=== PATIENT | female | born 1935 | race Caucasian/White ===

== ENCOUNTER 2016-08-05 22:41 | Emergency (ER) | payer OTHER ==
[~2016-08-05 22:41] MED LIST: ELAVIL25 MG PO; FEOSOL325 MG PO; LASIX40 MG PO; LAXATIVE5 MG PO; LOPRESSOR25 MG PO; NORCO 5-325 TA1 EACH PO; PRINIVIL20 MG PO; XARELTO10 MG PO
== END 2016-08-06 01:57 | disposition home or self-care (01) ==
LOC: FER 22:41
DX: S00.83XA Contusion of other part of head, initial encounter (principal); I10 Essential (primary) hypertension; E78.5 Hyperlipidemia, unspecified; Z23 Encounter for immunization; Z79.899 Other long term (current) drug therapy; W10.9XXA Fall (on) (from) unspecified stairs and steps, initial encounter; Y92.009 Unspecified place in unspecified non-institutional (private) residence as the place of occurrence of the external cause
CPT/HCPCS: 70450; 90471; 90715

== ENCOUNTER 2020-03-20 20:05 | Emergency (ER) | payer OTHER ==
[~2020-03-20 20:05] MED LIST changes: +AMLODIPINE BES2.5 MG PO; +ARICEPT 5MG TABL5 MG PO; +BACTRIM DS TAB1 EACH PO; +CELEBREX200 MG PO; +CELECOXIB200 MG PO; +CYMBALTA 30MG C30 MG PO; +DULOXETINE HCL60 MG PO; +ELAVIL10 MG PO; +FOLIC ACID1 MG PO; +FUROSEMIDE 40MG40 MG PO; +KETOPROFEN TOP; +LIDOCAINE TOP; +MACROBID100 MG PO; +MEDROL 4MG DOSEP4 MG PO; +METOPROLOL SUC100 MG PO; +NABUMETONE500 MG PO; +NEURONTIN100 M1 PO; +NEURONTIN100 MG PO; +NORVASC2.5 MG PO; +NORVASC5 MG PO; +PHENYTEK300 MG PO; +POTASSIUM CHLO10 ME1 PO; +SYNTHROID25 MCG PO; +TOPROL XL 50 MG50 MG PO; +VIBRAMYCIN100 MG PO; +VISTARIL25 MG PO; +XANAX0.5 M1 PO
[2020-03-21] MEDS ORDERED: NAPROSYN375 MG PO (00:23)
== END 2020-03-21 01:40 | disposition home or self-care (01) ==
LOC: FER 20:05
DX: S70.11XA Contusion of right thigh, initial encounter (principal); I10 Essential (primary) hypertension; Z88.5 Allergy status to narcotic agent; Z79.899 Other long term (current) drug therapy; W19.XXXA Unspecified fall, initial encounter; Y92.009 Unspecified place in unspecified non-institutional (private) residence as the place of occurrence of the external cause
CPT/HCPCS: 73502; 73560; 73700; J2270; J2405

== ENCOUNTER 2020-03-21 11:53 | Inpatient (IN) | payer OTHER ==
[~2020-03-21 11:53] MED LIST changes: +NAPROSYN375 MG PO
[2020-03-21 13:45] LABS: BASOPHIL 0.2 % (0-2); EOSINOPHIL 1.8 % (0-7); HCT 39.4 % (37.0-47.0); LYMPHOCYTE 10.8 % (15-48); MONOCYTE 6.5 % (0-12); MPV 9.1 fL (6.0-9.5); NEUTROPHIL 80.2 % (41-80); NRBC 0; PLT 125 K/uL (150-400); RBC 4.06 M/uL (4.20-5.40); RDW 12.4 % (11.5-14.0); WBC 8.2 K/uL (4.0-10.5)
[2020-03-21 14:04] LABS: ALBUMIN 3.2 g/dL (3.4-5.0); BILIRUBIN - TOTAL 0.6 mg/dL (0.2-1.0); BUN/CREAT RATIO (CALC) 25.8 RATIO; CREATININE 0.89 mg/dL (0.51-0.95); GLOBULIN (CALCULATION) 3.5 g/dL; POTASSIUM 4.1 mmol/L (3.5-5.1); TOTAL PROTEIN 6.7 g/dL (6.4-8.2)
[2020-03-21 21:22] LABS: BILIRUBIN NEGATIVE (NEGATIVE); BLOOD TRACE-INTACT Ery/uL (NEGATIVE); CLARITY CLOUDY (CLEAR); COLOR YELLOW (YELLOW); GLUCOSE (U) NORMAL (NORMAL); LEUKOCYTES 1+ Leu/uL (NEGATIVE); NITRITE NEGATIVE (NEGATIVE); PROTEIN NEGATIVE (NEGATIVE); UROBILINOGEN 0.2 mg/dL (0.2-1.0); pH 6.5 (5.0-9.0)
[2020-03-21 21:28] LABS: BACTERIA 4+; URINARY WBC TNTC
--- NOTE | 2020-03-22 17:06 | NUR ---
DR JUDD CONSULTED AND CALLED. MRI WITHOUT CONTRAST ORDERED FOR AM D/T RIGHT HIP PAIN D/T FALL AT HOME
[2020-03-24 07:37] LABS: BUN/CREAT RATIO (CALC) 20.2 RATIO; CREATININE 0.84 mg/dL (0.51-0.95)
[2020-03-24 07:38] LABS: BASOPHIL 0.4 % (0-2); EOSINOPHIL 4.3 % (0-7); HCT 36.8 % (37.0-47.0); LYMPHOCYTE 12.6 % (15-48); MCH 32.1 pg (25.0-31.0); MCHC 32.6 g/dL (32.0-36.0); MCV 98.4 fL (78.0-100.0); MONOCYTE 9.8 % (0-12); MPV 9.8 fL (6.0-9.5); NEUTROPHIL 72.1 % (41-80); NRBC 0; PLT 136 K/uL (150-400); RBC 3.74 M/uL (4.20-5.40); RDW 12.3 % (11.5-14.0); WBC 5.3 K/uL (4.0-10.5)
[2020-03-25 06:23] LABS: BASOPHIL 0.4 % (0-2); EOSINOPHIL 2.4 % (0-7); HCT 30.1 % (37.0-47.0); HGB 9.8 g/dl (12.5-16.0); LYMPHOCYTE 9.1 % (15-48); MCH 31.4 pg (25.0-31.0); MCHC 32.6 g/dL (32.0-36.0); MCV 96.5 fL (78.0-100.0); MONOCYTE 11.6 % (0-12); MPV 9.9 fL (6.0-9.5); NEUTROPHIL 75.9 % (41-80); NRBC 0; PLT 146 K/uL (150-400); RBC 3.12 M/uL (4.20-5.40); RDW 12.3 % (11.5-14.0)
[2020-03-25 06:43] LABS: BUN/CREAT RATIO (CALC) 24.1 RATIO; CREATININE 0.83 mg/dL (0.51-0.95); POTASSIUM 4.1 mmol/L (3.5-5.1)
--- NOTE | 2020-03-25 15:03 | NUR ---
TC TO SON, JACOBY. HE ADVISED THAT [facility]OULD BE FIRST CHOICE, [facility] AND [facility].
--- NOTE | 2020-03-25 15:54 | NUR ---
S/W JOVANY GONZALEZ, INF CONTROL RN. ISOLATION NOT NEEDED FOR E COLI OR URINE
[2020-03-26 06:41] LABS: BASOPHIL 0.4 % (0-2); EOSINOPHIL 3.5 % (0-7); HCT 26.7 % (37.0-47.0); HGB 8.7 g/dl (12.5-16.0); LYMPHOCYTE 12.4 % (15-48); MCH 31.9 pg (25.0-31.0); MCHC 32.6 g/dL (32.0-36.0); MCV 97.8 fL (78.0-100.0); MPV 10.2 fL (6.0-9.5); NEUTROPHIL 73.1 % (41-80); NRBC 0; PLT 117 K/uL (150-400); RBC 2.73 M/uL (4.20-5.40); RDW 12.5 % (11.5-14.0); WBC 5.4 K/uL (4.0-10.5)
[2020-03-26 06:50] LABS: BUN/CREAT RATIO (CALC) 22.4 RATIO; CREATININE 0.76 mg/dL (0.51-0.95); POTASSIUM 4.1 mmol/L (3.5-5.1)
[2020-03-27 04:34] LABS: BASOPHIL 0.4 % (0-2); EOSINOPHIL 2.1 % (0-7); HCT 25.6 % (37.0-47.0); HGB 8.3 g/dl (12.5-16.0); LYMPHOCYTE 9.2 % (15-48); MCH 31.7 pg (25.0-31.0); MCHC 32.4 g/dL (32.0-36.0); MCV 97.7 fL (78.0-100.0); MONOCYTE 10.5 % (0-12); NEUTROPHIL 76.5 % (41-80); NRBC 0; PLT 133 K/uL (150-400); RBC 2.62 M/uL (4.20-5.40); RDW 12.3 % (11.5-14.0); WBC 5.3 K/uL (4.0-10.5)
[2020-03-27] MEDS ORDERED: OXYCODONE-ACET1 EAC1 PO (09:10)
[2020-03-27] MEDS ORDERED: XARELTO10 MG PO (09:24)
--- NOTE | 2020-03-27 10:16 | NUR ---
SPOKE WITH SONS, LUDA AND JACOBY. ADVISED THAT PT. HAS BEEN ACCEPTED AT [facility]. THEY ARE BOTH IN AGREEMENT. ADVISED SHE WOULD BE TRANSFERRED BY [facility] PER DR. WHITMAN. TC FROM [facility] FAX NUMBER FOR D/C SUMMARY IS [phone] REPORT PHONE NUMBER IS [phone]. ADVISED NURSE,JERARDO OF D/C INFORMATION
--- NOTE | 2020-03-27 10:34 | NUR ---
PT. WAS ADVISED THAT SHE HAS BEEN APPROVED FOR [facility]. SHE IS IN AGREEMENT TO D/C TO THE FACILITY. ADVISED HER THAT I HAVE ADVISED HER SONS OF HER TRANSFER.
== END 2020-03-27 12:40 | DRG 481 ==
LOC: FER 11:53 → FMS 17:07
PROVIDERS: Emergency Medicine; Legal Medicine; Nurse Practitioner Adult Health; ADMIT Internal Medicine
PROC: 0QSB04Z Reposition Right Lower Femur with Internal Fixation Device, Open Approach (ICD-10-PCS; principal; 2020-03-24 14:00)
DX: S72.144A Nondisplaced intertrochanteric fracture of right femur, initial encounter for closed fracture (principal); N30.00 Acute cystitis without hematuria; D62 Acute posthemorrhagic anemia; W18.30XA Fall on same level, unspecified, initial encounter; Z20.822 Contact with and (suspected) exposure to COVID-19; F03.90 Unspecified dementia, unspecified severity, without behavioral disturbance, psychotic disturbance, mood disturbance, and anxiety; F41.9 Anxiety disorder, unspecified; I10 Essential (primary) hypertension; E78.5 Hyperlipidemia, unspecified; Z96.653 Presence of artificial knee joint, bilateral; M19.90 Unspecified osteoarthritis, unspecified site; G62.9 Polyneuropathy, unspecified; M85.88 Other specified disorders of bone density and structure, other site; B96.20 Unspecified Escherichia coli [E. coli] as the cause of diseases classified elsewhere; G40.909 Epilepsy, unspecified, not intractable, without status epilepticus; Z88.1 Allergy status to other antibiotic agents; Z98.890 Other specified postprocedural states; Z90.710 Acquired absence of both cervix and uterus; Z90.49 Acquired absence of other specified parts of digestive tract; Z88.6 Allergy status to analgesic agent; Z88.0 Allergy status to penicillin; Z88.8 Allergy status to other drugs, medicaments and biological substances
CPT/HCPCS: 36415; 72050; 73501; 73502; 73560; 73700; 73721; 76000; 80048; 80053; 81001; 85025; 86850; 86900; 86901; 87076; 87088; 87186; 93005; 94010; 94760; 94762; 97110; 97162; 97167; 97530; 97530-GP; 97535; C1713; J0696; J1170; J2250; J2270; J2370; J2405; J2704; J2795; J7120; U0002